=== PATIENT | male | born 2000 ===

== ENCOUNTER 2025-06-15 14:11 | Outpatient (REF) | payer OTHER, SELFPAY ==
[2025-06-15 17:53] LABS: MANUAL DIFF FLAG NO
[2025-06-15 18:24] LABS: Appearance Urine Clear; Glucose Urine UA Negative (Negative); PH 6.5 (5.0-9.0); Specific Gravity - Urine <= 1.005 (1.005-1.025)
[2025-06-15 18:28] LABS: Hematocrit 47.3 % (42.0-52.0); Hemoglobin 16.3 g/dl (14.0-18.0); Imm Gran Abs Auto 0.02 X10*3/uL (0.00-0.03); Imm Gran Pct Auto 0.3 % (0.0-0.4); Lymphocytes Absolute Auto 2.5 X10*3/uL (1.2-4.9); Mean Corpuscular HGB Conc 34.5 g/dl (31.0-36.0); Mean Corpuscular Hemoglobin 28.3 pg (27.0-33.0); Mean Corpuscular Volume 82.3 fL (80.0-98.0); NRBC Abs Auto 0.000 X10*3/uL (0.0-0.012); NRBC Pct Auto 0.0 /100WBC (0.0-0.2); Platelet Count 270 X10*3/uL (160-400); Red Blood Count 5.75 X10*6/uL (4.60-5.80); White Blood Count 7.5 X10*3/uL (4.8-10.8)
[2025-06-15 18:45] LABS: Alanine Aminotransferase 31 U/L (0-40); Albumin Level 5.2 g/dL (3.5-5.0); Alkaline Phosphatase 98 U/L (39-117); Anion Gap 13 (12-20); Aspartate Amino Transferase 37 U/L (5-37); Blood Urea Nitrogen 15 mg/dL (9-16); Calcium 9.9 mg/dL (8.4-10.2); Carbon Dioxide 27 mmol/L (22-29); Chloride 102 mmol/L (96-108); Cholesterol 206 mg/dL (<200); Estimated Glomerular Filt Rate > 60; HDL Cholesterol 36 mg/dL (>40); Magnesium 2.1 mg/dL (1.6-2.6); Potassium 4.4 mmol/L (3.3-5.1); Sodium 138 mmol/L (135-145); Total Protein 8.7 g/dL (6.5-8.0); Triglycerides 284 mg/dL (<150)
[2025-06-15 18:47] LABS: Folate 7.9 ng/mL (> or = 4.0); Vitamin B12 578 pg/mL (200-900)
[2025-06-17 04:47] LABS: HBS Num1 165.53 mIU/mL (0-7.99); HBsAGNum1 0.36 S/CO (0.00-0.99); HIV Num 1 0.05 S/CO (0.00-0.99); Hepatitis B Surface Antigen Negative (Negative); ~HepC Num1 0.10 S/CO (0.00-0.79); ~Hepatitis B Surface Antibody REACTIVE (Nonreactive); ~Hepatitis C Antibody Nonreactive (Nonreactive)
[2025-06-21 14:23] LABS: VITAMIN D (1,25 OH) D3 54 pg/mL; Vit D (1,25-Dihydroxy) Total 54 pg/mL (18-72); Vitamin D (1,25 OH) D2 <8 pg/mL
== END 2025-06-15 14:12 | disposition home or self-care (01) ==
LOC: HO.HKASLDS 14:11
PROVIDERS: PCP Physician Assistant; Visit Provider Student in an Organized Health Care Education/Training Program
DX: Z13.9 Encounter for screening, unspecified (principal); C64.2 Malignant neoplasm of left kidney, except renal pelvis; F41.9 Anxiety disorder, unspecified; R03.0 Elevated blood-pressure reading, without diagnosis of hypertension; Z90.5 Acquired absence of kidney
CPT/HCPCS: 36415; 80053; 80061; 81003; 82570; 82607; 82652; 82746; 83036; 83735; 84443; 85025; 86706; 86803; 87340; 87389

== ENCOUNTER 2025-06-15 14:11 | Outpatient (AMB) | payer OTHER, SELFPAY ==
--- OUTSIDE RECORDS SUMMARY | 2015-08-27 09:00 | XMS_ITS | Continuity of Care Document ---
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 . [facility], [address], [place], [place], [id number], [place] tel:[phone] Log Truck Driver No Information 6 Log Truck Driver. . [facility], [address], [place], [place], [id number], [place] tel:[phone] Log Truck Driver No Information 5 Log Truck Driver. . PREV VISIT, NEW, AGE 12-17 Edward M [facility], [address], [place], [place], [id number], [place] tel:[phone] [facility] Well Child (chief complaint) NPC (chief complaint) Encounter for routine child health examination with abnormal findingsH/O renal cell cancerH/O parotitisH/O streptococcal pharyngitis [address] [place] [place] [address], [place], [place], [id number] , [place]. [phone] Family History Family Member Type Diagnosis Age At Onset No Information Immunizations Vaccine Date Status Comments Influenza, split virus, inje ctable, 3 years and older Fluzone [id number] administered Source : Other Provider Td (adult) preservative free administered Source: Other Registry varicella virus vaccine administered Sour ce: Other Registry poliovirus vaccine, inactivated administe red Source: Other Registry HPV, unspecified formulation administered Source: Other Registry hepatitis B vaccine, pediatr ic or pediatric/adolescent dosage administered Source: Othe r Registry hepatitis A vaccine, pediatric/adolescent dosage, 2 dose schedule administered Source: Other Regist ry poliovirus vaccine, inactivated administe red Source: Other Registry MMR administered Source: Other R egistry HPV, unspecified formulation administered Source: Other Registry hepatitis B vaccine, pediatr ic or pediatric/adolescent dosage administered Source: [place] r Registry Tdap (Adacel) administered Source: Other Registry Varicella administered Source: Other R egistry polio, inactive administered Source: Othe r Registry measles, mumps and rubella v irus vaccine administered Source: Other Regist ry meningococcal MCV4P administered Source: Other Registry HPV, quadrivalent administered Source: Ot her Registry Hep B, adolescent or pediatr ic, 3 dose administered Source: Other Regist ry Hep A (ped/adol, 2 dose) administered Hedy rce: Other Registry Payers Payer name Insurance type Covered libertarian ID Gerardo anders(s) [facility] [id number] [facility] [id number] Social History Type Description Quantity Date Captured Comments Sex Male Smoking Status No Information Chief Complaint And Reason For Visit No Information Reason For Referral Reason For Referral No Information Plan Of Treatment Date Type Action Status Goal HPV (3rd) due Goal Tdap. Due on due Goal HPV (1st) due Goal Td vaccine. Due on due Goal HPV (2nd) due Goal Influenza vaccine. Due on due Referral Ordered: Referrals: Oncology. Location: [facility]. Follow-up and Treat ordered History Of Present Illness Encounter Date Complaint History Of Prese nt Illness Well Child NPC hospitalized pat ient discharged 07/31 moved from [facility] 1 year prior - has a hx of left nephrectomy and treatment for a renal sarcoma - however did not establish heme-onc f/u after moving here. Came in on 07/28 with dx of left parotitis. Worsening left sided check and jaw pain x 4d w/ fevers/chills. Looked ill upon entrance to ED but much better after ibuprofen and clinda. Was still spiking temps after admit, subsequently Linezolid was added for synergy. Fever curve downtrending now and swelling/redness/pain much improved. Will go home on Linezolid to complete total of 7 days antibiotic therapy. Incidentally he was also rapid strep postive. Mumps titers were sent and are pending. In discussion with heme-onc at [facility] it was decided to obtain MRI of the head/neck/abd/pelvis to rule out metastases this was done - normal results. CBC has always looked reassuring. They did also order urine catecholamines in case this was adrenal related - results are still pending. He will need routine f/u with Heme onc set up once insurance is in place. Functional Status Date Functional Assessmen t No Information Instructions Date Instruction Additional Infor mation Age appropriate anti cipatory guidance discussed (11-14 years) Related to Encntr for routine child health exam w/o abnormal findings Age appropriate diet discussed (11-14 years) Related to Encntr for routine child health exam w/o abnormal findings Age appropriate safe ty discussed (11-14 years) Related to Encntr for routine child health exam w/o abnormal findings Oral Health Discussed (- yea rs) Related to Encntr for routine child health exam w/o abnormal findings Assessments Type Assessment Date No Information Patient Care Teams Name Effective Dates (start - stop) Status Members No Information
--- NOTE | 2025-06-15 14:13 | MHC.PC.OV ---
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 Consumer Insights Specialist Required: No Accompanied by: Self / Same As Patient Allergies amoxicillin Allergy (Mild, Verified 06/15/25 14:18) Rash Medication List - Last Reconciled 06/15/25 by Neville Sanders MD No Known Home Meds Tobacco use date assessed: 06/15/25 Dental Screening Dental Screen Date: 06/15/25 Did you have a dental visit in the last 12 months?: Yes Did you have a dental problem in the last 6 months where you did not have access to dental care?: No Was dental information given to patient?: Yes HPI HPI Comments History of Present Illness Details History of Present Illness The patient is a 24-year-old male presenting to [facility] care. 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 He was treated in [facility] with a left nephrectomy and chemotherapy. He has been feeling well since and receives regular check-ups, currently following with a child care leader at [facility]. He has an abdominal scar and a small tattoo from the chemotherapy. Anxiety and White Coat Hypertension: The patient reports experiencing anxiety, particularly in medical settings, which he attributes to his extensive history of hospital visits for cancer treatment as a child. He worries that something will be found to be wrong during his appointments. This anxiety causes his blood pressure to be elevated at the doctor's office. A previous 24-hour ambulatory blood pressure monitoring ordered by his child care leader was normal. He also reports that anxiety sometimes causes difficulty sleeping. History of Eyelid Injury: The patient sustained an injury to his eyelid from an accident as a child, which required surgery. He reports no subsequent loss of eyesight. Surgical History: - Left nephrectomy for clear cell sarcoma as an . - Eyelid surgery s/p childhood accident. Social History: - The patient is originally from [facility] and speaks [place]. - He recently moved to [place] from [place], [place]. - He is currently a student, pursuing dental hygiene. - He previously worked in retail. - He denies smoking, excessive alcohol use, and illicit drug use. - He lives with his mother, stepfather, and sister. - The patient reports he is not currently sexually active. Family History: - Brother: High blood pressure. - Cousins: Some have had cancer. - He denies any history of cancer in his parents or siblings. Diagnostic Results: - Past 24-hour ambulatory blood pressure monitoring was normal. - The patient reported that recent lab work ordered by his child care leader had an unspecified result that was a little bit off. Past Medical History - Clear cell sarcoma of the left kidney as an infant, treated with left nephrectomy and chemotherapy. - Solitary kidney, status post-nephrectomy. - Anxiety, particularly in medical settings. - White coat hypertension, previously evaluated with a normal 24-hour ambulatory BP monitor. - History of eyelid injury with surgical repair as a child, with no loss of vision. Health Maintenance - The patient is establishing care with a new primary care physician. - He is followed by a child care leader at [facility] for his solitary kidney. - Baseline labs have been ordered for health screening. - The patient declined screening for chlamydia, gonorrhea, and syphilis, citing he is not sexually active. [facility] Medical History (Updated 06/15/25 @ 14:50 by Neville Sanders MD) White coat syndrome without hypertension Anxiety Cancer of left kidney FHx: kidney cancer Surgical History (Updated 06/15/25 @ 14:50 by Neville Sanders MD) H/O left nephrectomy H/O kidney removal Social History (Updated 06/15/25 @ 14:20 by Constantino Sandoval CMA) Housing: House Alcohol intake: current Comment: ocasionally Patient Tobacco Use Status: Never used Tobacco e-Cigarette/Vaping Use: Never Used service: No Current occupational status: unemployed Cognitive needs: No Hearing needs: No Vision needs: Yes Questionnaire PHQ-9 Over the last 2 weeks, how often have you been bothered by any of the following problems? 1. Little interest or pleasure in doing things: not at all 2. Feeling down, depressed, or hopeless: not at all 3. Trouble falling or staying asleep, or sleeping too much: several days 4. Feeling tired or having little energy: not at all 5. Poor appetite or overeating: not at all 6. Feeling bad about yourself - or that you are a failure or have let yourself or your family down: not at all 7. Trouble concentrating on things, such as reading the newspaper or watching television: not at all 8. Moving or speaking so slowly that other people could have noticed. Or the opposite - being so fidgety or restless that you have been moving around a lot more than usual: not at all 9. Thoughts that you would be better off or of hurting yourself in some way: not at all Total score: 1 Depression Screening Interpretation: Negative Depression Screening Done: Yes 26236 - PHQ-9 Billing: Yes Source: Developed by Drs. Arun Cates, Soo Barton, Cristofer Conner and colleagues, with an educational chika from [employer]. Thrive Questionnaire Date Thrive assessed: 06/15/25 I am a: Patient What is your living situation today?: I have a steady place to live Within the past 12 months, did the food you bought not last and you didn't have the money to get more?: Never true Within the past 12 months, did you worry whether your food would run out before you got money to buy more?: Never true Do you have trouble paying for medicines?: I choose not to answer this question Do you have trouble getting transportation to medical appointments?: I choose not to answer this question Do you have trouble paying your heating and electricity bill?: I choose not to answer this question Do you have trouble taking care of your child, family member or friend?: I choose not to answer this question Are you currently unemployed and looking for a job?: Yes Are you interested in more education?: Yes Please select the resources that you would like help with: None Currently or been in a relationship where the following occur: No concerns reported THRIVE Score: 0 AUDIT C Alcohol Use Questionnaire (AUDIT-C) 1. How often do you have a drink containing alcohol?: Never Total Score: 0 SINGH-7 AMB Questionnaire SINGH-7 Date SINGH - 7 assessed: 06/15/25 Feeling nervous, anxious, or on edge: 1 = Several days Not being able to stop or control worryin = Several days Worrying too much about different things: 0 = Not at all Trouble relaxin = Not at all Being so restless that it is hard to sit still: 1 = Several days Becoming easily annoyed or irritable: 0 = Not at all Feeling afraid as if something awful might happen: 1 = Several days Total SINGH-7 score (0-4 normal; 5-9 mild; 10-14 moderate; 15-21 severe): 4 Source: Developed by Drs. Arun Cates, Soo Barton, Cristofer Conner and colleagues, with an educational chika from [employer]. SINGH-7 Assessment Billing SINGH-7 Assessment Tool: SINGH-7 Assessment 93622 Review of Systems Narrative Review of Systems - Psychiatric: Reports anxiety, especially in medical settings, and worry. - Neurological: Reports occasional difficulty sleeping due to anxiety. - Eyes: Denies any vision loss from a past eyelid injury. - Genitourinary: Reports normal urination. - Gastrointestinal: Reports normal bowel movements. - General: Denies pain. - Sexual Health: Denies being sexually active. 10-point ROS reviewed and negative except as noted in HPI Physical exam (Primary Care) Vital Signs: Last Vital Signs Temp 98.5 F 06/15/25 14:21 Pulse 113 H 06/15/25 14:21 Resp 18 06/15/25 14:21 BP 141/80 H 06/15/25 14:21 Pulse Ox 99 06/15/25 14:21 Oxygen Delivery Method Room Air 06/15/25 14:21 BMI result Body Mass Index 21.4 Tobacco/Smoking Status: Tobacco use Status Tobacco use date assessed 06/15/25 06/15/25 14:23 Patient Tobacco Use Status Never used Tobacco 06/15/25 14:23 e-Cigarette/Vaping Use Never Used 06/15/25 14:23 PHQ-9: PHQ-9 Score PHQ-9: Total score 1 06/15/25 14:23 Depression Screening Interpretation: Negative Thrive Assessment: Date of Thrive Assessment Date Thrive assessed 06/15/25 06/15/25 14:23 Currently or been in a relationship where the following occur: No concerns reported Narrative Physical Exam General: Well-appearing, in no acute distress. Vital signs: Within normal limits, although patient reports anxiety-related blood pressure concerns. HEENT: Normocephalic, atraumatic. PERRLA, EOMI. Conjunctiva clear, sclera anicteric. Oropharynx clear, mucous membranes moist. TMs intact bilaterally. Noted history of eye surgery due to childhood accident. Neck: Supple, no lymphadenopathy, no thyromegaly, no JVD or carotid bruits. Cardiovascular: RRR, normal S1/S2, no murmurs, rubs, or gallops. Peripheral pulses 2+ and symmetric. No edema. Respiratory: Lungs clear to auscultation bilaterally, no wheezes, rales, or rhonchi. Normal effort. Abdomen: Soft, non-tender, non-distended. Normoactive bowel sounds. No hepatosplenomegaly, no masses. Noted scar from left kidney removal due to clear cell sarcoma. MSK: Full range of motion, no joint swelling or deformity. Normal gait. Skin: Warm, dry, intact. No rashes, lesions, or pallor. Noted tattoo from chemotherapy. Neuro: Alert and oriented x3. Cranial nerves II-XII intact. Strength 5/5 throughout. Sensation intact. Reflexes 2+ symmetric. Normal coordination and gait. Psych: Appropriate mood and affect. Normal judgment and insight. Reports anxiety, particularly related to medical visits and history of cancer. Coding Level of Care Code New Pt Level 4 (21911) Diagnoses Cancer of left kidney C64.2 H/O left nephrectomy Z90.5 Anxiety F41.9 White coat syndrome without hypertension R03.0 Additional Codes SINGH-7 Assessment Billing - SINGH-7 Assessment Tool: SINGH-7 Assessment 76327 ([id number]) PHQ-9 - 83603 - PHQ-9 Billing: Yes ([id number]) Assessment & Plan Assessment & Plan (1) Cancer of left kidney: Code(s): C64.2 - Malignant neoplasm of left kidney, except renal pelvis Category: Medical (2) H/O left nephrectomy: Code(s): Z90.5 - Acquired absence of kidney Category: Surgical (3) Anxiety: Code(s): F41.9 - Anxiety disorder, unspecified Category: Medical (4) White coat syndrome without hypertension: Code(s): R03.0 - Elevated blood-pressure reading, without diagnosis of hypertension Category: Medical Plan Consent Consent was sought to take a picture of the patient's abdominal scar for his medical chart. The patient declined to have a picture taken. Patient was informed and verbally consented to the use of an ambient scribe for clinic note documentation during this visit. Plan 1. Establishment Of Care - Will obtain outside medical records from the patient's child care leader at [facility]. - Ordered baseline laboratory studies including a complete blood count, comprehensive metabolic panel, urinalysis, hemoglobin A1c, lipid panel, vitamin B12, folate, vitamin D, hepatitis B, hepatitis C, and HIV. - Patient declined screening for chlamydia, gonorrhea, and syphilis. - Plan to schedule a follow-up appointment in approximately two weeks, after the patient returns from travel, to discuss lab results. 2. Anxiety And White Coat Hypertension - Reassured the patient regarding his anxiety in the clinical setting and its effect on his blood pressure readings. - Acknowledge the history of a normal 24-hour ambulatory blood pressure monitor, which suggests white coat hypertension. - The ordered comprehensive metabolic panel will evaluate kidney function and electrolytes, which is important given his solitary kidney. Discussion Notes I met with the patient, a 24-year-old male, who presented to [facility] care as he is new to the area. We discussed his past medical history, which is significant for clear cell sarcoma of the left kidney as an , treated with nephrectomy and chemotherapy, leaving him with a solitary right kidney. He expressed concerns about anxiety in medical settings, leading to white coat hypertension, and I reassured him after noting that a previous 24-hour ambulatory monitor was normal. I explained my plan to order comprehensive baseline bloodwork to obtain a good overview of his health, including kidney and liver function, cholesterol, and infectious disease screening; he declined STI testing as he is not currently sexually active. I recommended we follow up in a couple of weeks to review the results, and after a physical exam, I informed him that everything appears to be fine. Patient Instructions - Please provide our bank secrecy act officer, Izabel, with the information needed to request your medical records from your kidney doctor at [facility]. - We will have your blood drawn today for the ordered tests. - Please let Izabel know your travel dates so she can schedule a follow-up appointment for when you return. - If you have any issues with your insurance covering the lab work, please let us know so we can assist. Medical Decision Making The patient is a 24-year-old male presenting to [facility] primary care. His medical history is complex, notable for a solitary kidney secondary to a left nephrectomy for childhood clear cell sarcoma. He also reports significant anxiety in medical settings, which manifests as white coat hypertension. A prior normal 24-hour ambulatory blood pressure study supports this diagnosis over essential hypertension, despite a positive family history. The main goal of this visit is to establish care and create a baseline health profile. Due to his solitary kidney, monitoring renal function is a priority, hence the inclusion of a comprehensive metabolic panel and urinalysis in the ordered labs. Additional baseline screening includes a CBC, HbA1c, lipid panel, and various infectious disease markers to provide a comprehensive overview. Continuity of care will be ensured by obtaining records from his child care leader. A follow-up visit is planned to review all findings and formulate a long-term health maintenance strategy. Total time spent caring for the patient today was 30 minutes. This includes time spent before the visit reviewing the chart, time spent documenting, and time spent reviewing laboratory results, diagnostic imaging, medications, performing a medically necessary evaluation, counseling on diagnoses, care coordination.. Orders: Orders Complete Blood Count Auto Diff Today Z13.9 - Encounter for screening, unspecified Hepatitis B Surface Antigen Today Z13.9 - Encounter for screening, unspecified Vitamin D 1,25 dihydroxy Today Z13.9 - Encounter for screening, unspecified UA CC w/rflx Micro + Cult Today Z13.9 - Encounter for screening, unspecified TSH reflex Free T4 Today Z13.9 - Encounter for screening, unspecified Comprehensive Met. Panel Today Z13.9 - Encounter for screening, unspecified Hepatitis B Surface Antibody Today Z13.9 - Encounter for screening, unspecified Hemoglobin A1c Today Z13.9 - Encounter for screening, unspecified Hepatitis C Antibody Today Z13.9 - Encounter for screening, unspecified HIV Ab/Ag Today Z13.9 - Encounter for screening, unspecified Lipid Panel Today Z13.9 - Encounter for screening, unspecified Magnesium Today Z13.9 - Encounter for screening, unspecified Microalbumin, Random (w Creat) Today Z13.9 - Encounter for screening, unspecified Vitamin B12 and Folate Today Z13.9 - Encounter for screening, unspecified
[2025-06-15 14:21] VITALS: BP 141/80; PULSE 113; RESP 18; TEMP 36.9; O2SAT 99; BMI 21.4
--- OUTSIDE RECORDS SUMMARY | 2025-06-15 15:57 | XMS_ITS | Encounter Summary ---
Author Organization [facility] Address [address] [place] [address] Phone Care Team Providers Care Antenna Specialist Name Role Phone [place] [facility] Primary [facility] Provi rick Encounter Details Date Type Department Care Team (Latest Contact Info) Description 08/18/2021 Transcribe Orders [facility] Central Scheduling Virtual [address] [place] [address] Jatinder Lai PA [address] [place] [id number] [email or web address] Lower abdominal pain (Primary Dx) Social History Tobacco Use Types Packs/Day Years Used Date Smoking Tobacco: Never Assessed Sex and Gender Information Value Date Recorded Sex Assigned at Not on file Legal Sex Male 4:26 PM EST Gender Identity Not on file Sexual Orientation Not on file documented as of this encounter Plan of Treatment Not on file documented as of this encounter Results * US Abdomen Complete (09/01/2021 8:35 AM EST) Anatomical Region Laterality Modality Abdomen Ultrasound 09/01/2021 8:52 AM EST Impressions 09/01/2021 8:54 AM EST No acute abdominal abnormality is identified. Status post left nephrectomy. No residual or recurrent abnormalities identified. Narrative 09/01/2021 8:54 AM EST Procedure: US ABDOMEN COMPLETE 09/01/2021 8:09 AM US Indications: Pain; lower abdominal pain x2 months. Comparison: No relevant recent comparisons. Technique: Serial longitudinal and transverse real time grayscale images, were acquired through the abdomen utilizing a curved array transducer. Color Doppler images were used assess vascularity. FINDINGS: Liver: Examination of the liver demonstrates normal homogeneous echogenicity. There is a smooth hepatic surface contour. There are no solid hepatic masses. No intrahepatic bile duct dilatation. The portal vein diameter is 0.9 cm. Color interrogation of the portal vein reveals patency and hepatopetal flow. Gallbladder: There are no shadowing calcifications. There is no pericholecystic fluid, or gallbladder wall thickening. The gallbladder wall measures 2 mm The common bile duct is normal in caliber measuring 1 mm in diameter. Sonographic Sheldon's sign was assessed and negative. Pancreas: The visible portions of the mid pancreas have a normal texture and shape. Spleen: The spleen has length of 8.8 cm. No focal lesions. Kidneys: The right kidney is normal in shape and position. The cortical thickness is normal and there is normal echogenicity. The right kidney measures 13.8 cm in length. There is no evidence of hydronephrosis, shadowing calcifications, solid/cystic masses or perinephric collections. The left kidney is surgically absent. No focal lesions are identified within the nephrectomy bed. Vascular: Partial visualization of the aorta secondary to obscuration from overlying bowel gas. The visualized portions of the aorta are normal. The IVC is adequately visualized and is unremarkable. Ascites: None. Procedure Note Nine, Garth Miller MD - 09/01/2021 Procedure: US ABDOMEN COMPLETE 09/01/2021 8:09 AM US Indications: Pain; lower abdominal pain x2 months. Comparison: No relevant recent comparisons. Technique: Serial longitudinal and transverse real time grayscale images,were acquired through the abdomen utilizing a curved array transducer.Color Doppler images were used assess vascularity. FINDINGS: Liver: Examination of the liver demonstrates normal homogeneousechogenicity. There is a smooth hepatic surface contour. There are nosolid hepatic masses. No intrahepatic bile duct dilatation. The portalvein diameter is 0.9 cm. Color interrogation of the portal vein revealspatency and hepatopetal flow. Gallbladder: There are no shadowing calcifications. There is nopericholecystic fluid, or gallbladder wall thickening. The gallbladderwall measures 2 mm The common bile duct is normal in caliber measuring 1mm in diameter. Sonographic Sheldon's sign was assessed and negative. Pancreas: The visible portions of the mid pancreas have a normal textureand shape. Spleen: The spleen has length of 8.8 cm. No focal lesions. Kidneys: The right kidney is normal in shape and position. The cortical thicknessis normal and there is normal echogenicity. The right kidney mdityzrw23.8 cm in length. There is no evidence of hydronephrosis, shadowingcalcifications, solid/cystic masses or perinephric collections. The left kidney is surgically absent. No focal lesions are identifiedwithin the nephrectomy bed. Vascular: Partial visualization of the aorta secondary to obscuration fromoverlying bowel gas. The visualized portions of the aorta are normal. TheIVC is adequately visualized and is unremarkable. Ascites: None. IMPRESSION: No acute abdominal abnormality is identified. Status post left nephrectomy. No residual or recurrent abnormalitiesidentified. us Jatinder NOBLE IMBetsy US ABDOMEN Final Result documented in this encounter Visit Diagnoses Diagnosis Lower abdominal pain- Primary Abdominal pain, other specified site Lower abdominal pain Abdominal pain, other specified site documented in this encounter Additional Health Concerns Infection Onset Date Last Indicated Resolved Time COVID-19 08/06/2021 08/06/2021 08/27/2021 1:23 AM EST documented as of this encounter Care Teams Antenna Specialist Relationship Specialty Start Date End Date [facility] [address] [place] [id number] PCP - General 08/18/21 documented as of this encounter Additional Source Comments The information contained in this document represents components of the legal health record. It is not the complete legal health record.[facility]
--- OUTSIDE RECORDS SUMMARY | 2025-06-15 15:57 | XMS_ITS | Encounter Summary ---
Author Organization [facility] Address [address] [place] [address] Phone Care Team Providers Care Microfilm Camera Operator Name Role Phone Timothy Replaced By [facility] Primary Care Provi rick Encounter Details Date Type Department Care Team (Late st Contact Info) Description 08/14/2021 Transcribe Orders [facility] [address] [place] [address] Noah Rosenberg [email or web address] Social History Tobacco Use Types Packs/Day Years Used Date Smoking Tobacco: Never Assessed Sex and Gender Information Value Date Recorded Sex Assigned at Not on file Legal Sex Male 4:26 PM EST Gender Identity Not on file Sexual Orientation Not on file documented as of this encounter Plan of Treatment Not on file documented as of this encounter Visit Diagnoses Not on filedocumented in this encounter Additional Health Concerns Infection Onset Date Last Indicated Resolved Time COVID-19 08/06/2021 08/06/2021 08/27/2021 1:23 AM EST documented as of this encounter Care Teams Microfilm Camera Operator Relationship Specialty Start Date End Date Shirin Aguirre [facility] [address] [facility] [place] [address] PCP - General 08/18/21 documented as of this encounter Additional Source Comments The information contained in this document represents components of the legal health record. It is not the complete legal health record.[facility]
--- OUTSIDE RECORDS SUMMARY | 2025-06-15 15:57 | XMS_ITS | Clinical Summary ---
Author Organization [facility] Address [address] [place] [address] Care Team Providers Care Primary Class Teacher Name Role Phone Unavailable Primary Care Provider Unavailabl e Source Comments PLEASE NOTE, if this patient is a minor, it may be UNLAWFUL to discuss sensitive information that is contained in these records (such as FAMILY PLANNING, MENTAL HEALTH or SUBSTANCE ABUSE) with the minor patient's parent or other person without the patient's specific authorization.[facility] Allergies Active Allergy Reactions Criticality Noted Date Comments Amoxicillin Rash 09/04/2016 Medications No known medications Active Problems Problem Noted Date Diagnosed Date Other specified anxiety disorders 08/19/2021 Overview (08/27/2021): 08/19/2021- Pt presents with anxiety sxs, shortness of breath, chest pain, worrying about the future, and inability to concentrate. Sxs are not attributed to specific thing and not occurring most days, therefore presentation aligns with this dx. Assessment & Plan (10/28/2021 10:03 AM EDT): Assessment: Pt reports not having been experiencing sxs in the last month. Current Risk Assessment (if positive complete C-SSRS): None - no suicidal ideation. Plan details: Type of therapy: Individual Frequency: 1x month Expected Duration in months (range): 6-8 sessions Specific comments (if any): Assessment & Plan (09/24/2021 5:45 PM EST): Assessment: Pt denies having sxs of anxiety currently; continues to practice coping skills. Current Risk Assessment (if positive complete C-SSRS): None - no suicidal ideation. Plan details: Type of therapy: Individual Frequency: 1x week-1x month Expected Duration in months (range): 6-12months Specific comments (if any): Assessment & Plan (09/16/2021 9:56 AM EST): Assessment: Pt reports not having anxiety sxs since last week; applying coping skills learned. Current Risk Assessment (if positive complete C-SSRS): None - no suicidal ideation. Plan details: Type of therapy: Individual Frequency: 1x week Expected Duration in months (range): 6months Specific comments (if any): Assessment & Plan (09/09/2021 4:32 PM EST): Assessment: Pt presents with anxiety sxs due to worrying about his current/future health. Current Risk Assessment (if positive complete C-SSRS): None - no suicidal ideation. Plan details: Type of therapy: individual Frequency: 1x week Expected Duration in months (range): 6-12 months Specific comments (if any): Assessment & Plan (09/03/2021 8:31 AM EST): Assessment: Pt presents with happy mood, reports having anxiety sxs such as worry, shaking, hypervigilant. Current Risk Assessment (if positive complete C-SSRS): None - no suicidal ideation. Plan details: Type of therapy: Individual Frequency: 1x week Expected Duration in months (range): 6-12months Specific comments (if any): Assessment & Plan (08/19/2021 2:49 PM EST): Assessment: See overview Current Risk Assessment (if positive complete C-SSRS): None - no suicidal ideation. Plan details: Type of therapy: individual Frequency: 1x week Expected Duration in months (range): 6-12 months Specific comments (if any): Single kidney 06/09/2019 Left retinal detachment 11/24/2018 Overview (03/29/2019): Scheduled for laser treatment for this problem November-December 2018 at [facility]. Was recently seen by Genetics to look for genetic cause of retinal detachment. He did not clinically fit a syndromic pattern and some genetic testing was prohibitively expensive and not covered by insurance. Some genetic testing was done and results are pending. It was also suggested that we order an echocardiogram to look for manifestations of connective tissue disease. Chronic kidney disease, stage 1, normal or incre ased GFR 11/13/2016 Overview (09/26/2021): 10/30/16: Evaluated by [facility] Renal, Dr. Dory Melvin. Blood pressure, UA, electrolytes, bicarbonate levels normal. Renal US showed normal-appearing right kidney with compensatory hypertrophy and empty left renal fossa. Diagnosed with CKD stage 1. Recommended to avoid nephrotoxic medications, including NSAID therapy. Should radiocontrasted studies be needed in the future, renal injury mitigation strategies should be employed including hyperhydration and sodium bicarbonate infusion. Provided contact info for [facility]. FU 1 year. 09/26/21: Seen by Nephrology [facility] recently. He remains well with stable renal fx. It is recommended that at each yearly PE we check BP as well as urine dipstick for proteinuria. 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 Mother of patient signed release form to receive records. 10/30/16: Evaluated by [facility] Renal, Dr. Dory Melvin. Blood pressure, UA, electrolytes, bicarbonate levels normal. Renal US showed normal-appearing right kidney with compensatory hypertrophy and empty left renal fossa. Diagnosed with CKD stage 1. Recommended to avoid nephrotoxic medications, including NSAID therapy. Should radiocontrasted studies be needed in the future, renal injury mitigation strategies should be employed including hyperhydration and sodium bicarbonate infusion. Provided contact info for [facility]. FU 1 year. Assessment & Plan (09/04/2016 5:43 PM EST): Refer to nephrology Obtain CMP to assess renal function Immunizations Immunization Administration Dates Next Due Flu, Cell Culture based, Pre servative Free, 6m+, Flucelvax 08/20/2016 Flu, Preservative Free 09/16/2017 HEP A, PED/ADOL, HISTORICAL 08/20/2016 HEP B, PED/ADOL (DFZOMXY-K-MUER/RECOMBIVAX-PEDS) 04/08/2015,12/19/2014,10/28/2014 HPV 9 (Gardasil) 04/08/2015,12/19/2014, 5 Hep A, Ped/adol, 2 Dose 04/08/2015,10/28/2014 IPV (IPOL) 08/20/2016, 5,12/19/2014,10/28 MENINGOCOCCAL MCV4O (MENVEO) 10/28/2014 MENINGOCOCCAL MCV4P (MENACTRA) 12/22/2018 MMR (MMR II/Priorix) 12/19/2014,10/28/2014 PFIZER COVID VACCINE, PURPLE CAP, 12+ 10/27/2020 ,10/06/2020 PPD 08/26/2016 TDAP 10/28/2014 Td (adult), 5 Lf tetanus tox oid (Tenivac), preservative free 08/20/2016 Td (adult),2 Lf tetanus toxo id (TDVAX), preservative free 04/08/2015 Varicella (Varivax), Live Vaccine 04/08/2015, Family History Medical History Relation Name Comments Depression Maternal Grandmother Relation Name Status Comments Maternal Grandmother Social History Tobacco Use Types Packs/Day Years Used Date Smoking Tobacco: Never Smokeless Tobacco: Never Social Connections Answer Date Recorded Connectedness 0 04/28/2024 Financial Resource Strain Answer Date R ecorded Financial Resource Strain 0 2018 Stress Answer Date Recorded Stress 0 03/29/2019 Physical Activity Answer Date Recorded Physical Activity 0 03/29/2019 Food Insecurity Answer Date Recorded Food 0 05/04/2024 Transportation Needs Answer Date Record ed Transportation 0 03/29/2019 Housing Stability Answer Date Recorded Housing 0 03/29/2019 Safety and Environment Answer Date Dillon rded Safety 0 03/29/2019 Utilities Answer Date Recorded Utilities 0 03/29/2019 Employment Answer Date Recorded Stress 0 04/28/2024 Sex and Gender Information Value Date Recorded Sex Assigned at Not on file Legal Sex Male 10:18 AM PST Gender Identity Not on file Sexual Orientation Not on file Last Filed Vital Signs Vital Sign Reading Time Taken Comments Blood Pressure 130/80 08/14/2021 10:53 AM EST Pulse 98 08/14/2021 10:53 AM EST Temperature 36.3 C (97.3 F) 08/14/2021 10:53 AM EST Respiratory Rate 18 08/14/2021 10:53 AM EST Oxygen Saturation 97% 08/14/2021 10:53 AM EST Inhaled Oxygen Concentration - - Weight 54.4 kg (120 lb) 08/14/2021 10:53 AM EST Height 163.8 cm (5' 4.5 ) 12/22/2018 10:44 AM ED T Body Mass Index 20.28 12/22/2018 10:44 AM EDT Plan of Treatment Health Maintenance Due Date Last Done Comments Hepatitis C Screening 2001 Tobacco Screening 2001 HIV Screening 2016 Anxiety Screening 08/19/2022 08/19/2021 Alcohol and Drug Screen 08/09/2024 12/22/2018, 09/04 Depression Annual Screen 08/09/2024 09/04/2016 Hypertension Screening (#1) 08/13/2024 [id number] ( season) 2025 021, 10/06/2020 Imm-Influenza (#1) 2025 09/16/2017, 0 08/20/2016, 07/31/2015 Imm-DTaP/Tdap/Td (5 - Td or Tdap) 08/20/2026 08/20/2016, 04/06/2016, 04/08/2015, Additional history exists Imm-Hepatitis B Completed 04/08/2015, 12/07, 10/28/2014 Imm-Varicella Completed 04/08/2015, 10/28/2014 Imm-HPV Completed 04/06/2016, 03/11, 12/19/2014, Additional history exists Goals Goal Patient Goal Type Associated Problems Recent Progress Patient-Stated? Author Manage better my anxiety General Other specified anxiety disorders On track(10/29/19 10:03 AM PDT) Yes Olga House, [facility] Note: Pt will develop coping skills to better manage sxs of anxiety Pt will be able to identify triggers for anxiety. Insurance [employer] NET MEDICAID
--- OUTSIDE RECORDS SUMMARY | 2025-06-15 15:57 | XMS_ITS | Encounter Summary ---
Author Organization [facility] Address [address] [place] [phone] Phone Care Team Providers Care Photographic Process Worker Name Role Phone [place] [facility] Primary Care Provi rick Encounter Details Date Type Department Care Team (Late st Contact Info) Description 08/14/[address] [facility] Specimen Processing [address] [place] [address] JOANNA Barrientos [address] Vandana [email or web address] Social History Tobacco Use Types Packs/Day Years [...] documented as of this encounter Care Teams Photographic Process Worker Relationship Specialty Start Date End Date Shirin Aguirre [facility] [address] [facility] [facility] [address] JO[place]NA Laureano [address] PCP - General 08/18/21 documented as of this encounter Additional Source Comments The information contained in this document represents components of the legal health record. It is not the complete legal health record.[facility]
--- OUTSIDE RECORDS SUMMARY | 2025-06-15 15:57 | XMS_ITS | Encounter Summary ---
Author Organization [facility] Address [address] [place] [address] Phone Care Team Providers Care Clinical Systems Analyst Name Role Phone Timothy [facility] Primary Care Provi rick Encounter Details Date Type Department Care Team (Late st Contact Info) Description 06/03/2021 Transcribe Orders [facility] [address] [facility] [place] [address] Noah Rosenberg [email or web address] Social History Tobacco Use Types Packs/Day Years [...] documented as of this encounter Care Teams Clinical Systems Analyst Relationship Specialty Start Date End Date Shirin Aguirre [facility] [address] [facility] [place] [address] PCP - General 08/18/21 documented as of this encounter Additional Source Comments The information contained in this document represents components of the legal health record. It is not the complete legal health record.[facility]
--- OUTSIDE RECORDS SUMMARY | 2025-06-15 15:58 | XMS_ITS | Clinical Summary ---
Author Organization [facility] Address [address] [place] [address] Phone Care Team Providers Care Picker Operator Name Role Phone Chata Linder Primary Care Provider [phone] Chata Linder Unavailable [phone] Chata Linder Unavailable [phone] Allergies Active Allergy Reactions Criticality Noted Date Comments Amoxicillin Hives 07/17/2024 Medications * This document contains information received from the source organization and may not represent a complete record from that organization. No known medications Active Problems Problem Noted Date Diagnosed Date White coat syndrome without hypertension 025 History of retinal detachment 07/17/2024 Other specified anxiety disorders 08/19/2021 Overview (10/09/2024): 08/19/2021- Pt presents with anxiety sxs, shortness of breath, chest pain, worrying about the future, and inability to concentrate. Sxs are not attributed to specific thing and not occurring most days, therefore presentation aligns with this dx. Single kidney 06/09/2019 Hypertensive retinopathy of both eyes 11/17/2018 Overview (10/09/2024): Exam concerning for hypertensive retinopathy with OCT showing temporal inner retinal atrophy consistent with longstanding ischemia. H/o retinal carcinoma s/p nephrectomy BP in eye clinic was 128-138/88 Patient has not seen PCP for 1+ year. Advice patient and mother to see PCP within the month. 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 Patient to call with changes in intensity, location, and frequency of flashes and floaters, and if curtain/veil coming over some or part of their vision. Patient verbalized understanding. Return [place] 12 month DFE/OCT both eyes Last Comp 05/22/19 Retinal detachment of both eyes with multiple br eaks 11/17/2018 Overview (10/09/2024): Scheduled for laser treatment for this problem [...] look for manifestations of connective tissue disease. 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 Mother of patient signed release form to receive records. 10/30/16: Evaluated by [facility] Renal, Dr. Dory Melvin. Blood pressure, UA, electrolytes, bicarbonate levels normal. Renal US showed normal-appearing right kidney with compensatory hypertrophy and empty left renal fossa. Diagnosed with CKD stage 1. Recommended to avoid nephrotoxic medications, including NSAID therapy. Should radiocontrasted studies be needed in the future, renal injury mitigation strategies should be employed including hyperhydration and sodium bicarbonate infusion. [facility] F[facility] 1 year. Encounters Date Type Department Care Team Description 05/17/2025 Telephone [facility] [address] [place] [address] Chata Linder from Last 3 Months Immunizations Immunization Administration Dates Next Due Pfizer Purple Cap SARS-CoV-2 10/27/2020,10/06/19 Social History Tobacco Use Types Packs/Day Years Used Date Smoking Tobacco: Never Passive Smoke Exposure: Never Smokeless Tobacco: Never Tobacco Cessation:Counseling Given: Not Answered Sex and Gender Information Value Date Recorded Sex Assigned at Not on file Legal Sex Male 12:33 AM EDT Gender Identity Not on file Sexual Orientation Not on file Last Filed Vital Signs Vital Sign Reading Time Taken Comments Blood Pressure 130/80 08/04/2024 2:02 PM EST Pulse 105 08/04/2024 9:13 AM EST Temperature - - Respiratory Rate 18 06/13/2021 4:10 PM EDT Oxygen Saturation 98% 06/13/2021 4:10 PM EDT Inhaled Oxygen Concentration - - Weight 57.1 kg (125 lb 14.1 oz) 08/04/2024 9:13 AM EST Height 164 cm (5' 4.57 ) 08/04/2024 9:13 AM EST Body Mass Index 21.23 08/04/2024 9:13 AM EST Plan of Treatment Upcoming Encounters Date Type Department Care Team (Late Contact Info) Description 10/29/2025 10:30 AM EDT Appointment [facility] [address] [place] [address] 10/29/2025 11:30 AM EDT Office Visit [facility] [address] [place] [address] Estefani Garcia MD [address] [place] [address] Health Maintenance Due Date Last Done Comments Chlamydia and Gonorrhea Screening 2001 HIV Screening 2001 Meningococcal B Vaccine (1 of 2 - Standard) 2017 Hepatitis C Screening 12/24/2019 Influenza Vaccine (#1) 2025 4, 09/16/2017, 08/20/2016, Additional history exists DTaP/Tdap/Td Vaccines (5 - Td or Tdap) 08/20/2026 08/20/2016, 04/06/2016, 04/08/2015, Additional history exists MMR Vaccines Completed 12/19/2014, 10/28/2014 Hepatitis B Vaccines Completed 04/08/2015, 12/19/2014, 10/28/2014 Varicella Vaccines Completed 04/08/2015, 10/28/2014 HPV Vaccines Completed 04/06/2016, 03/11, 12/19/2014, Additional history exists Hepatitis A Vaccines Completed 08/20/2016, 04/06/2016, 04/08/2015, Additional history exists IPV Vaccines Completed 08/20/2016, 03/11, 12/19/2014, Additional history exists Meningococcal Vaccine Completed 12/22/2018 , 04/06/2016, 10/28/2014 HIB Vaccines Aged Out No longer eligi ble based on patient's age to complete this topic Pneumococcal Vaccine: Pediatrics (0 to 5 Years) and At-Risk Patients (6 to 49 Years) Aged Out No longer eligible based on patient's age to complete this topic Rotavirus Vaccines Aged Out No longer eligible based on patient's age to complete this topic Insurance [employer] SAFETY NET on [place] [employer] SAF[employer]Y NET on [place] HEALTH SAFETY NET on file [facility] HEALTH SAFETY NET on [place] [address] Care Teams Picker Operator Relationship Specialty Start Date End Date Chata Linder [address] [facility] [place] [address] PCP - General 09/07/16 Chata Linder [address] [facility] [place] [address] PCP - Clinical PCP 09/07/16 Chata Linder [address] [place] [place] [address] PCP - Insurance PCP 09/07/16
--- OUTSIDE RECORDS SUMMARY | 2025-06-15 15:58 | XMS_ITS | Clinical Summary ---
Author Organization [facility] Address [address] [place] [address] Phone Care Team Providers Care Hospice Bereavement Coordinator Name Role Phone On License Of [facility] Primary Care Provi rick Social History Tobacco Use Types Packs/Day Years Used Date Smoking Tobacco: Never Assessed Education Answer Date Recorded Are you interested in more education? Not on sonya e 12/04/2022 Are you concerned about learning? Not on file 12/04/2022 No 12/04/2022 No 12/04/2022 Digital Access Answer Date Recorded No 01/04/2023 No 01/04/2023 No 01/04/2023 Reliable internet access at home? Not on file 01/04/2023 Device with a working camera? Not on file Sex and Gender Information Value Date Recorded Sex Assigned at Not on file Legal Sex Male 4:26 PM EST Gender Identity Not on file Sexual Orientation Not on file Plan of Treatment Health Maintenance Due Date Last Done Comments DEPRESSION SCREENING 2013 SMOKING Hx and SMOKELESS TOBACCO SCREENING 2014 MENINGOCOCCAL VACCINES (B) (1 of 2 - Standard) 2017 HEPATITIS C SCREENING 12/24/2019 HIV ONE-TIME SCREENING (18-65 YEARS) 12/24/2019 09/04/2016 INFLUENZA VACCINE (#1) 2025 8, 08/20/2016, 07/31/2015 COVID-19 VACCINE ( season) 2025 10/27/2020, 10/06/2020 Adult Td,Tdap Booster 08/20/2026 08/20/2016 , 04/06/2016, 04/08/2015, Additional history exists HPV VACCINES Completed 04/06/2016, 03/11, 12/19/2014, Additional history exists HEPATITIS A VACCINES Completed 08/20/2016, 04/06/2016, 04/08/2015, Additional history exists MENINGOCOCCAL VACCINES (ACWY) Completed 12/22/2018, 04/06/2016, 10/28/2014 HIB VACCINES Aged Out No longer eligi ble based on patient's age to complete this topic PNEUMOCOCCAL VACCINES (0-49 years) Aged Out No longer eligible based on patient's age to complete this topic Medical Devices Not on file Insurance HEALTH SAFETY NET FULL Member Subscriber Plan / Payer (Ef fective 2018-Present) Name:Cooper Gunderson Relation to Subscriber:Self Name:Cooper Gunderson Payer ID:Not on file Group ID:Not on file Type:Medicaid Address: [address] HEALTH SAFETY NET FULL [facility] HEALTH SAFETY NET FULL [facility] LIMITED HEALTH SAFETY NET FULL [facility] HEALTH SAFETY NET FULL [facility] LIMITED HEALTH SAFETY NET FULL [facility] HEALTH SAFETY NET FULL [facility] LIMITED HEALTH SAFETY NET FULL [facility] FULL [facility] [place] SAFETY NET FULL Deposit[facility]HEALTH LIMITED [facility] SAFETY NET FULL Dep[facility]HEALTH LIMITED [place] SAFETY NET FULL Dep[facility]HEALTH LIMITED [facility] SAFETY NET FULL DepositphotosHEALTH LIMITED [place] SAFETY NET FULL Deposit[facility]HEALTH LIMITED [facility] SAFETY NET FULL DepositphotosHEALTH LIMITED [place] SAFETY NET FULL [facility]HEALTH LIMITED [facility] SAFETY NET FULL DepositphotosHEALTH LIMITED HEALTH SAFETY NET FULL HEALTH SAFETY NET FULL Deposit[employer]HEALTH LIMITED HEALTH SAFETY NET FULL [place] HEALTH SAFETY NET FULL Member Subscriber Plan / Payer (Ef fective 2018-Present) Name:Cooper Gunderson Relation to Subscriber:Self Name:Cooper Gunderson Payer ID:Not on file Group ID:Not on file Type:Medicaid [address] [facility] SAFETY NET FULL [employer]HEALTH LIMITED [facility] NET FULL [facility] HEALTH SAFETY NET FULL [facility] [place] [address] [address] NET FULL [facility] JOANNA LAUREANO [id number] HEALTH SAFETY NET FULL [facility] LIMITED Care Teams Hospice Bereavement Coordinator Relationship Specialty Start Date End Date [facility] [place] [facility] [address] [place] [address] [place] [address] PCP - General 08/18/21 Additional Source Comments The information contained in this document represents components of the legal health record. It is not the complete legal health record.[facility]
== END 2025-06-15 14:37 | disposition home or self-care (01) ==
LOC: HO.HMCFMS 14:11
PROVIDERS: PCP Student in an Organized Health Care Education/Training Program; Visit Provider Student in an Organized Health Care Education/Training Program
DX: C64.2 Malignant neoplasm of left kidney, except renal pelvis (principal); Z90.5 Acquired absence of kidney; F41.9 Anxiety disorder, unspecified; R03.0 Elevated blood-pressure reading, without diagnosis of hypertension

== ENCOUNTER 2025-07-09 12:55 | Outpatient (AMB) | payer OTHER, SELFPAY ==
--- NOTE | 2025-07-09 12:59 | MHC.PC.OV ---
Vital Signs 07/09/25 13:02 Height 5 ft 5 in Weight 125 lb 2 oz BMI 20.8 BP 135/78 Blood Pressure Location Lt brachial Position Sitting Respiration 18 Pulse 107 H Pulse Source Monitor Temp 98.9 F Temp Source Oral Pulse Oximetry (%) 99 Oxygen Delivery Method Room Air Intake Visit Reasons: f/u - lab review Intake Note: lab review Accompanied by: Self / Same As Patient Allergies amoxicillin Allergy (Mild, Verified 07/09/25 13:01) Rash Medication List - Last Reconciled 07/09/25 by Neville Sanders MD No Known Home Meds Tobacco use date assessed: 06/15/25 Dental Screening Dental Screen Date: 06/15/25 HPI HPI Comments History of Present Illness Details History of Present Illness The patient is a 24 year old individual presenting for a review of laboratory results. Mixed Hyperlipidemia: The patient's recent non-fasting laboratory results show hyperlipidemia, with elevated triglycerides at 284 mg/dL, total cholesterol at 206 mg/dL, and LDL at 114 mg/dL. The HDL level was noted to be low. Social History: - Nutrition: The patient's diet reportedly includes items such as cheese, eggs, charcuterie, sweet drinks, sweet juices, and sodas which may contribute to hyperlipidemia. Diagnostic Results: - Non-fasting lipid panel: Triglycerides 284 mg/dL, Total cholesterol 206 mg/dL, LDL 114 mg/dL, and low HDL. - Random glucose: 125 mg/dL. Past Medical History Health Maintenance - Counseled on lifestyle modifications, specifically dietary changes, for management of hyperlipidemia. - Recommended reducing intake of foods high in cholesterol and sugar, such as cheese, eggs, charcuterie boards, sweet drinks, juices, and sodas. - Advised follow-up in six months for repeat lipid panel. [facility] Medical History (Updated 07/09/25 @ 13:17 by Neville Sanders MD) Tachycardia Eosinophilia Mixed hyperlipidemia White coat syndrome without hypertension Anxiety Cancer of left kidney FHx: kidney cancer Surgical History H/O left nephrectomy H/O kidney removal Social History (Updated 07/09/25 @ 13:01 by Constantino Sandoval CMA) Housing: House Alcohol intake: current Comment: ocasionally Patient Tobacco Use Status: Never used Tobacco e-Cigarette/Vaping Use: Never Used service: No Current occupational status: unemployed Cognitive needs: No Hearing needs: No Vision needs: Yes Questionnaire Thrive Questionnaire Date Thrive assessed: 06/15/25 I am a: Patient What is your living situation today?: I have a steady place to live Within the past 12 months, did the food you bought not last and you didn't have the money to get more?: Never true Within the past 12 months, did you worry whether your food would run out before you got money to buy more?: Never true Do you have trouble paying for medicines?: I choose not to answer this question Do you have trouble getting transportation to medical appointments?: I choose not to answer this question Do you have trouble paying your heating and electricity bill?: I choose not to answer this question Do you have trouble taking care of your child, family member or friend?: I choose not to answer this question Are you currently unemployed and looking for a job?: Yes Are you interested in more education?: Yes Please select the resources that you would like help with: None Currently or been in a relationship where the following occur: No concerns reported THRIVE Score: 0 SINGH-7 AMB Questionnaire SINGH-7 Date SINGH - 7 assessed: 06/15/25 Source: Developed by Drs. Arun Cates, Soo Barton, Cristofer Conner and colleagues, with an educational chika from [employer]. Review of Systems Narrative Review of Systems - All systems reviewed and are negative. 10-point ROS reviewed and negative except as noted in HPI Physical exam (Primary Care) Vital Signs: Last Vital Signs Temp 98.9 F 07/09/25 13:02 Pulse 107 H 07/09/25 13:02 Resp 18 07/09/25 13:02 BP 135/78 07/09/25 13:02 Pulse Ox 99 07/09/25 13:02 Oxygen Delivery Method Room Air 07/09/25 13:02 BMI result Body Mass Index 20.8 Tobacco/Smoking Status: Tobacco use Status Tobacco use date assessed 06/15/25 07/09/25 13:03 Patient Tobacco Use Status Never used Tobacco 07/09/25 13:03 e-Cigarette/Vaping Use Never Used 07/09/25 13:03 Thrive Assessment: Date of Thrive Assessment Date Thrive assessed 06/15/25 07/09/25 13:03 Currently or been in a relationship where the following occur: No concerns reported Narrative Physical Exam General: Well-appearing, in no acute distress. Vital signs: Blood pressure lower than the first time, heart rate 107. HEENT: Normocephalic, atraumatic. PERRLA, EOMI. Conjunctiva clear, sclera anicteric. Oropharynx clear, mucous membranes moist. TMs intact bilaterally. Neck: Supple, no lymphadenopathy, no thyromegaly, no JVD or carotid bruits. Cardiovascular: RRR, normal S1/S2, no murmurs, rubs, or gallops. Peripheral pulses 2+ and symmetric. No edema. Respiratory: Lungs clear to auscultation bilaterally, no wheezes, rales, or rhonchi. Normal effort. Abdomen: Soft, non-tender, non-distended. Normoactive bowel sounds. No hepatosplenomegaly, no masses. MSK: Full range of motion, no joint swelling or deformity. Normal gait. Skin: Warm, dry, intact. No rashes, lesions, or pallor. Neuro: Alert and oriented x3. Cranial nerves II-XII intact. Strength 5/5 throughout. Sensation intact. Reflexes 2+ symmetric. Normal coordination and gait. Psych: Appropriate mood and affect. Normal judgment and insight. Coding Level of Care Code Est Pt Level 3 (02790) Diagnoses Mixed hyperlipidemia E78.2 Eosinophilia D72.10 Tachycardia R00.0 Assessment & Plan Assessment & Plan (1) Mixed hyperlipidemia: Code(s): E78.2 - Mixed hyperlipidemia Category: Medical (2) Eosinophilia: Code(s): D72.10 - Eosinophilia, unspecified Category: Medical (3) Tachycardia: Code(s): R00.0 - Tachycardia, unspecified Category: Medical Plan Consent Patient was informed and verbally consented to the use of an ambient scribe for clinic note documentation during this visit. Plan 1. Mixed Hyperlipidemia - The patient's non-fasting lipid panel shows elevated triglycerides, total cholesterol, and LDL, with low HDL. - Given the patient's age and non-fasting status of the labs, pharmacotherapy is not indicated at this time. - Educated the patient on the importance of dietary modification, advising a reduction in cheese, eggs, charcuterie, sweet drinks, and sodas. - The patient was informed of the long-term risks, including heart attack and stroke, and the risk of pancreatitis with severely high triglycerides. - Plan is for a follow-up visit in six months to re-evaluate the lipid panel. Discussion Notes I reviewed the patient's recent non-fasting laboratory results, which showed elevated triglycerides, total cholesterol, and LDL cholesterol, with low HDL. I explained that while the numbers are elevated, I am not overly concerned given the patient's young age and the fact that the labs were not drawn in a fasting state, which means the true values are likely lower. I discussed the long-term risks of hyperlipidemia, such as heart attack and stroke, and the risk of pancreatitis if triglycerides become severely elevated. I recommended lifestyle modifications, focusing on dietary changes to reduce intake of things like cheese, eggs, and sweet drinks. We agreed to have the patient return in six months to recheck the labs. Patient Instructions - Your recent lab work showed that your cholesterol and triglycerides are a little high. - To help lower these numbers, try to make some changes to your diet. - Cut down on foods like cheese, eggs, and processed meats (like [employer] boards). - Also, reduce your intake of sweet drinks, sweet juices, sodas, and candies. - Please come back to the clinic in six months so we can check your lab work again. Medical Decision Making The patient is a 24-year-old individual presenting for a review of a non-fasting lipid panel. Results showed mixed hyperlipidemia with triglycerides of 284, total cholesterol of 206, and LDL of 114. The decision was made to manage this with lifestyle modification rather than pharmacotherapy at present. This decision is based on the patient's young age, the modest elevation of lipids, and the non-fasting state of the sample, which likely overestimates the true values. The risk of pancreatitis is low as triglycerides are well below 500. The patient was counseled on dietary changes and the value of keeping these numbers in control to reduce future cardiovascular risk. The plan is to recheck a fasting lipid panel in six months to assess response to dietary changes. Total Time Statement 20 min Total time spent caring for the patient today includes pre-visit chart review, documentation, review of laboratory and diagnostic imaging results, medication reconciliation, medically necessary evaluation, counseling on diagnoses, care coordination, ordering appropriate tests and medications, review of tests performed by other providers, reporting test results to the patient, and communication with other healthcare providers.
[2025-07-09 13:02] VITALS: BP 135/78; PULSE 107; RESP 18; TEMP 37.2; O2SAT 99; BMI 20.8
--- OUTSIDE RECORDS SUMMARY | 2025-07-09 16:33 | XMS_ITS | Clinical Summary ---
Author Organization [facility] Address [address] [place] [address] Phone Care Team Providers Care Truck Loader And Unloader Name Role Phone Chata Linder Primary Care Provider [phone] Chata Linder Unavailable [phone] Chata Linder Unavailable [phone] Allergies Active Allergy Reactions Criticality Noted [...] (10/09/2024): Referred by Faye Enriquez, OD at [facility] Asymptomatic finding of posteriorly inserted vitreous base [...] - KIM JAQUEZ, DORY Renee Added by [facility] History of renal cell carcinoma 09/04/2016 Overview (10/09/2024): 09/04/2016: 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 - ph: [phone], [phone]; #Expediente: [id number]; Transferring care from [facility] in [place], [place], and [facility] in [place] where he was receiving care prior to moving to [place]. Mother of patient signed release form to receive records. 10/30/16: Evaluated by [facility] Renal, Dr. Dory Melvin. Blood [...] sodium bicarbonate infusion. [facility] F[facility] year. Encounters Date Type Department Care Team Description 05/17/2025 Telephone [facility] [address] [place] [address] Chata Linder from Last 3 Months Immunizations [...] Info) Description 10/29/2025 10:30 AM EDT Appointment [facility] [address] [place] [address] 10/29/2025 11:30 AM EDT Office Visit [facility] [address] [place] [address] Estefani Garcia MD [address] [place] [address] Health Maintenance Due Date Last Done Comments [...] patient's age to complete this topic Insurance [employer] HE[employer] SAFETY NET on file [place] [employer] SAF[employer]Y NET on file [place] [employer] SAFETY NET on file [facility] SAFETY NET on file [employer] Care Teams Truck Loader And Unloader Relationship Specialty Start Date End Date Chata Linder [address] [facility] [address] PCP - General 09/07/16 Chata Linder [address] [place] [address] PCP - Clinical PCP 09/07/16 Chata Linder [address] [facility] [place] [address] PCP - Insurance PCP 09/07/16
--- OUTSIDE RECORDS SUMMARY | 2025-07-09 16:33 | XMS_ITS | Encounter Summary ---
Author Organization [facility] Address [address] [place] [phone] Phone Care Team Providers Care Expansion Joint Builder Name Role Phone [facility] Primary Care Provi rick Encounter Details Date Type Department Care Team (Late st Contact Info) Description 08/14/2021 Transcribe Orders [facility] Specimen Processing [address] [place] [address] JOANNA Barrientos [address] Vandana [email or web address] Social [...] documented as of this encounter Care Teams Expansion Joint Builder Relationship Specialty Start Date End Date Shirin Aguirre [facility] [address] [facility] JOANNA Laureano [address] PCP - General 08/18/21 documented as of this encounter Additional Source Comments The information contained in this document represents components of the legal health record. It is not the complete legal health record.[facility]
--- OUTSIDE RECORDS SUMMARY | 2025-07-09 16:33 | XMS_ITS | Encounter Summary ---
Author Organization [facility] Address [address] [place] [phone] Phone Care Team Providers Care Driver'S Education Instructor Name Role Phone Ashley [facility] Primary Care Provi rick Encounter Details Date Type Department Care Team (Latest Contact Info) Description 08/18/2021 Transcribe Orders [facility] Central Scheduling Virtual [address] [place] [address] Jatinder Lai PA [address] [facility] [place] [id number] [email or web address] Lower abdominal pain (Primary Dx) [...] there is normal echogenicity. The right kidney ejlvfipg54.8 cm in length. There is no evidence [...] documented as of this encounter Care Teams Driver'S Education Instructor Relationship Specialty Start Date End Date [facility] [address] [place] [phone] PCP - General 08/18/21 documented as of this encounter Additional Source Comments The information contained in this document represents components of the legal health record. It is not the complete legal health record.[facility]
--- OUTSIDE RECORDS SUMMARY | 2025-07-09 16:33 | XMS_ITS | Clinical Summary ---
Author Organization [facility] Address [address] [place] [phone] Phone Care Team Providers Care Edge Stitcher Name Role Phone [facility] Primary Care Provi rick Social [...] file Group ID:Not on file Type:Medicaid Address: [address] HEALTH SAFETY NET FULL [facility] [facility] S[facility] NET FULL [facility] HEALTH SAFETY NET FULL [facility] HEALTH SAFETY NET FULL [facility] S[facility] NET FULL [facility] NET FULL [facility] NET [facility] FULL [facility] [employer] SAFETY NET FULL [facility] LIMITED [facility] SAFETY NET FULL [facility] LIMITED [employer] SAFETY NET FULL [facility] LIMITED [facility] SAFETY NET FULL [facility] LIMITED [employer] SAFETY NET FULL [facility] LIMITED [facility] SAFETY NET FULL [facility] LIMITED [employer] SAFETY NET FULL [facility] LIMITED [facility] SAFETY NET FULL [facility] LIMITED HEALTH SAFETY NET FULL HEALTH SAFETY NET FULL [facility] HEALTH SAFETY NET FULL [place] HEALTH SAF[employer] NET FULL Member Subscriber Plan / Payer (Ef fective 2018-Present) Name:Cooper Gunderson Relation to Subscriber:Self Name:Cooper Gunderson Payer ID:Not on file Group ID:Not on file Type:Medicaid [address] [facility] NET FULL [facility] NET FULL [facility] HEALTH SAFETY NET FULL [facility] [place] [address] [place] [address] NET FULL [facility] JOANNA LAUREANO [address] HEALTH SAFETY NET FULL [facility] Care Teams Edge Stitcher Relationship Specialty Start Date End Date [facility] [place] [facility] [address] [place] [address] [place] [address] PCP - General 08/18/21 Additional Source Comments The information contained in this document represents components of the legal health record. It is not the complete legal health record.[facility]
--- OUTSIDE RECORDS SUMMARY | 2025-07-09 16:33 | XMS_ITS | Encounter Summary ---
Author Organization [facility] Address [address] [place] [phone] Phone Care Team Providers Care Inspector Plating Name Role Phone Timothy [facility] Primary Care Provi rick Encounter Details Date Type Department Care Team (Late st Contact Info) Description 08/14/2021 Transcribe Orders [facility] [place] [facility] [address] [facility] [place] [address] Noah Rosenberg [email or web address] Social History Tobacco Use [...] documented as of this encounter Care Teams Inspector Plating Relationship Specialty Start Date End Date [place] Aguirre [facility] [address] [facility] [address] PCP - General 08/18/21 documented as of this encounter Additional Source Comments The information contained in this document represents components of the legal health record. It is not the complete legal health record.[facility]
--- OUTSIDE RECORDS SUMMARY | 2025-07-09 16:33 | XMS_ITS | Encounter Summary ---
Author Organization [facility] Address [address] [place] [phone] Phone Care Team Providers Care Cardiograph Operator Name Role Phone Timothy [facility] Primary Care Provi rick Encounter Details Date Type Department Care Team (Late st Contact Info) Description 06/03/2021 Transcribe Orders [facility] [place] [facility] [address] [facility] [facility] [place] [address] Noah Rosenberg [email or web address] Social History Tobacco Use [...] documented as of this encounter Care Teams Cardiograph Operator Relationship Specialty Start Date End Date [place] Aguirre [facility] [address] [facility] [place] [address] PCP - General 08/18/21 documented as of this encounter Additional Source Comments The information contained in this document represents components of the legal health record. It is not the complete legal health record.[facility]
== END 2025-07-09 13:16 | disposition home or self-care (01) ==
LOC: HO.HMCFMS 12:56
PROVIDERS: PCP Student in an Organized Health Care Education/Training Program; Visit Provider Student in an Organized Health Care Education/Training Program
DX: E78.2 Mixed hyperlipidemia (principal); D72.10 Eosinophilia, unspecified; R00.0 Tachycardia, unspecified

== ENCOUNTER → 2025-07-09 12:55 | Outpatient (BNVA) | payer OTHER, SELFPAY | PROVIDERS: PCP Physician Assistant; Visit Provider Student in an Organized Health Care Education/Training Program | DX: E78.2 Mixed hyperlipidemia (principal); D72.10 Eosinophilia, unspecified; R00.0 Tachycardia, unspecified | CPT/HCPCS: 99212 ==